=== PATIENT | female | born 1985 | race Caucasian/White ===

== ENCOUNTER 2018-11-08 21:12 | Emergency (ER) | payer OTHER ==
[2018-11-08 21:20] VITALS: BP 111/57; PULSE 77; TEMP 98.2; BMI 21.4
--- NOTE | 2018-11-08 21:26 | PDOC ---
Rapid Medical Evaluation Chief Complaint: Pain, Acute Time Seen by Provider: 11/08/18 21:25 Medical Evaluation: Allergies Allergy/AdvReac Type Severity Reaction Status Date / Time No Known Allergies Allergy Verified 11/08/18 21:17 Vital Signs Temp Pulse Resp BP Pulse Ox 98.2 F 77 18 111/57 L 100 11/08/18 21:17 11/08/18 21:17 11/08/18 21:17 11/08/18 21:17 11/08/18 21:17 11/08/18 21:25 I have performed a brief in-person evaluation of this patient. The patient presents with a chief complaint of:L flank pain x 1 month Pertinent physical exam findings:unremarkable I have ordered the following:labs/ua The patient will proceed to the ED for further evaluation. Discharge Disposition - Diagnosis Left flank pain - Referrals - Patient Instructions - Post Discharge Activity
[2018-11-08 21:53] LABS: HCG,QUALITATIVE URINE Negative; URINE APPEARANCE CLEAR; URINE BILIRUBIN NEGATIVE (<2.0 mg/dL); URINE COLOR YELLOW; URINE GLUCOSE (UA) NEGATIVE (NEGATIVE); URINE KETONE NEGATIVE (NEGATIVE); URINE LEUK ESTERASE NEGATIVE (NEGATIVE); URINE NITRITE NEGATIVE (NEGATIVE); URINE PROTEIN NEGATIVE (NEGATIVE); URINE UROBILINOGEN NEGATIVE mg/dL (0.2-1.0)
[2018-11-08] MEDS ORDERED: ACETAMINOPHEN 500 MG TABLET (FP) PO ONE (22:29)
[2018-11-08] MEDS ORDERED: ACETAMINOPHEN 500 MG TABLET (FP) ONE (22:33)
--- NOTE | 2018-11-08 22:34 | PDOC ---
History of Present Illness - General Chief Complaint: Pain, Acute Stated Complaint: PAIN Time Seen by Provider: 11/08/18 21:25 History Source: Patient Exam Limitations: No Limitations - History of Present Illness Initial Comments: 11/08/18 22:29 HISTORY OF PRESENT ILLNESS: Is a 32-year-old woman who denies medical history of presents emergency department for evaluation of right lower back pain which has been intermittent for the past 2 months. Patient reports the pain started beginning of September lasted for weeks and then spontaneously resolved. Approximately 2 weeks ago the pain returned and has been constant over these past 2 weeks. Patient was evaluated in another hospital on 11/07 and had a negative workup at that time. Patient has secured an appointment with her primary doctor for evaluation in 2 weeks. She denies any fevers, chills, nausea , vomiting, saddle anesthesia, incontinence of bladder or bowel, urinary retention, history of IV drug use or cancer. No recent travel or sick contacts. PAST MEDICAL HISTORY: Denies past medical history SURGICAL HISTORY: Denies ALLERGIES: No known drug allergies REVIEW OF SYSTEMS General/Constitutional: Denies fever or chills. Denies weakness, weight change. HEENT: Denies change in vision. Denies ear pain or discharge. Denies sore throat. Cardiovascular: Denies chest pain or shortness of breath. Respiratory: Denies cough, wheezing, or hemoptysis. Gastrointestinal: Denies nausea, vomiting, diarrhea or constipation. Denies rectal bleeding. Genitourinary: Denies dysuria, frequency, or change in urination. Musculoskeletal: see HPI Skin and breasts: Denies rash or easy bruising. Neurologic: Denies headache, vertigo, loss of consciousness, or loss of sensation. Psychiatric: Denies depression or anxiety. Endocrine: Denies increased thirst. Denies abnormal weight change. Hematologic/Lymphatic: Denies anemia, easy bleeding, or history of blood clots. Allergic/Immunologic: Denies hives or skin allergy. Denies latex allergy. PHYSICAL EXAM General Appearance: Well-appearing, appropriately dressed. No apparent distress , no intoxication. HEENT: EOMI, PERRLA, normal ENT inspection, normal voice, TMs normal, pharynx normal. No conjunctival pallor. No photophobia, scleral icterus. Neck: Supple. Trachea midline. No tenderness, rigidity, carotid bruit, stridor , lymphadenopathy, or thyromegaly. Respiratory/Chest: Lungs CTAB. No shortness of breath, chest tenderness, respiratory distress, accessory muscle use. No crackles, rales, rhonchi, stridor , wheezing, dullness Cardiovascular: RRR. S1, S2. No JVD, murmur, bradycardia, tachycardia. Vascular Pulses: Dorsalis-Pedis (R): 2+, Dorsalis-Pedis (L): 2+ Gastrointestinal/Abdominal: Normal bowel sounds. Abdomen soft, non-distended. No tenderness or rebound tenderness. No organomegaly, pulsatile mass, guarding, hernia, hepatomegaly, splenomegaly. Lymphatic: No adenopathy, tenderness. Musculoskeletal/Extremities: Normal inspection. Pain worsens with flexion, extension and lateral rotation of the lumbar spine. No palpable muscle spasms present. No CVA tenderness. Integumentary: Appropriate color, dry, warm. No cyanosis, erythema, jaundice or rash Neurologic: category analyst II-XII intact. Fully oriented, alert. Appropriate mood/affect. Motor strength 5/5. No appreciable EOM palsy, facial droop or sensory deficit. Past History - Past Medical History Allergies/Adverse Reactions: Allergies Allergy/AdvReac Type Severity Reaction Status Date / Time No Known Allergies Allergy Verified 11/08/18 21:17 Home Medications: Ambulatory Orders NK [No Known Home Medication] 11/08/18 Asthma: No Cancer: No Cardiac Disorders: No CVA: No COPD: No Diabetes: No HTN: No Seizures: No Thyroid Disease: No - Suicide/Smoking/Psychosocial Hx Smoking History: Never smoked Hx Alcohol Use: No Drug/Substance Use Hx: No Hx Substance Use Treatment: No *Physical Exam - Vital Signs Last Vital Signs Temp Pulse Resp BP Pulse Ox 98.2 F 77 18 111/57 L 100 11/08/18 21:17 11/08/18 21:17 11/08/18 21:17 11/08/18 21:17 11/08/18 21:17 Moderate Sedation - Procedure Monitoring Vital Signs: Procedure Monitoring Vital Signs Temperature 98.2 F 11/08/18 21:17 Pulse Rate 77 11/08/18 21:17 Respiratory Rate 18 11/08/18 21:17 Blood Pressure 111/57 L 11/08/18 21:17 O2 Sat by Pulse Oximetry (%) 100 11/08/18 21:17 ED Treatment Course - ADDITIONAL ORDERS Additional order review: Laboratory Results 11/08/18 21:26 Urine Color Yellow Urine Appearance Clear Urine pH 5.0 Ur Specific [place] 1.031 Urine Protein Negative Urine Glucose (UA) Negative Urine Ketones Negative Urine Blood Negative Urine Nitrite Negative Urine Bilirubin Negative Urine Urobilinogen Negative Ur Leukocyte Esterase Negative Urine HCG, Qual Negative Medical Decision Making - Medical Decision Making 11/08/18 22:32 A/P: 32-year-old woman with lower back pain for 2 weeks No CVA tenderness Able to perform straight leg raises No palpable muscle spasms present No bony tenderness or deformity present Urinalysis is not suggestive of urinary tract infection Patient is not Patient has taken Motrin prior to arrival Tylenol 1 g orally Discharge home *DC/Admit/Observation/Transfer Diagnosis at time of Disposition: Lower back pain Qualifiers: Chronicity: acute Back pain laterality: right Sciatica presence: without sciatica Qualified Code(s): M54.5 - Low back pain - Discharge Dispostion Disposition: HOME Condition at time of disposition: Stable Decision to Admit order: No - Referrals Referrals: Darion Benitez [Primary Care Provider] - - Patient Instructions Additional Instructions: Take Tylenol or Motrin as needed for pain. Follow manufacturers instructions for appropriate dosage. Warm moist heat applied to your back may help alleviate pain. Return to emergency department for discoloration of the feet, numbness or tingling to the feet, worsening pain, or any other concerns. Thank you very much for choosing us to provide your emergent healthcare needs. - Post Discharge Activity
== END 2018-11-08 22:36 | disposition home or self-care (01) ==
LOC: JERFT 21:12
DX: M54.5 Low back pain (principal)
CPT/HCPCS: 81003; 84703; 99281-25

== ENCOUNTER 2024-07-11 19:33 | Emergency (ER) | payer OTHER ==
[2024-07-11 19:42] VITALS: BP 96/55; PULSE 92; RESP 18; TEMP 99; BMI 23.0
[2024-07-11] MEDS ORDERED: ACETAMINOPHEN 325 MG TABLET (FP) ONE (20:51)
[2024-07-11] MEDS: ACETAMINOPHEN 325 MG TABLET (FP) PO ONE (21:00)
[2024-07-11 21:03] LABS: EPI CELLS 15 /uL (0-25.1); HYALINE CASTS 1 /uL (0-3.1); PH,URINE 6.5 (5.0-8.0); URINE APPEARANCE CLEAR; URINE BACTERIA 38 /uL (0-1359); URINE BILIRUBIN NEGATIVE (NEGATIVE); URINE COLOR YELLOW; URINE GLUCOSE (UA) NEGATIVE (NEGATIVE); URINE KETONE NEGATIVE (NEGATIVE); URINE LEUK ESTERASE NEGATIVE (NEGATIVE); URINE NITRITE NEGATIVE (NEGATIVE); URINE PROTEIN NEGATIVE (NEGATIVE); URINE RBC 36 /uL (0-23.9); URINE WBC 6 /uL (0-25.8)
[2024-07-11 22:11] LABS: HIV INTERPRETATION NEGATIVE (NEGATIVE)
== END 2024-07-11 21:50 | disposition home or self-care (01) ==
LOC: JERFT 19:33
DX: R10.9 Unspecified abdominal pain (principal); R07.89 Other chest pain; R00.2 Palpitations; X50.1XXA Overexertion from prolonged static or awkward postures, initial encounter
CPT/HCPCS: 36415; 71046-TC-FY; 81003; 84484; 84703; 86803; 87086; 87389; 93005; 93010; 99285-25